=== PATIENT | female | born 2000 | race Caucasian/White ===

== ENCOUNTER 2018-04-22 11:30 | Emergency (ER) | payer SELFPAY ==
[~2018-04-22] VITALS: Wt 58.0 kg
[2018-04-22] MEDS ORDERED: ACETAMINOPHEN 325 MG TAB PO STA (12:25)
[2018-04-22] MEDS ORDERED: PREN-19 PO (14:20)
--- NOTE | 2018-04-22 14:25 | ERD ---
ER Documentation Chief Complaint Chief Complaint POSITIVE PREG TEST, HAS AP HPI 17-year-old female presents with suprapubic mild pain. She denies dysuria, fevers, vomiting. Denies vaginal bleeding or discharge. She thinks she might be . She has not checked a test at home. She has no history of ROS All systems reviewed and are negative except as per history of present illness. Medications Home Meds Active Scripts Vit #76/Iron,Carb/FA (Prenatabs Rx Tablet) 1 Each Tablet, 1 EACH PO Q DAY, #90 TAB Prov:SKY MARIA MD 04/22/18 PMhx/Soc Medical and Surgical Hx: pt denies Medical Hx, pt denies Surgical Hx History of Surgery: No Anesthesia Reaction: No Hx Neurological Disorder: No Hx Respiratory Disorders: No Hx Cardiac Disorders: No Hx Psychiatric Problems: No Hx Miscellaneous Medical Probl: No Hx Alcohol Use: No Hx Substance Use: No Hx Tobacco Use: No Smoking Status: Never smoker FmHx Family History: No diabetes, No coronary disease, No other Physical Exam Vitals Vital Signs Date Temp Pulse Resp B/P (MAP) Pulse Ox O2 O2 Flow FiO2 Time Delivery Rate 04/22/18 98.9 85 18 108/58 99 11:32 (75) Physical Exam Const: No acute distress Head: Atraumatic Eyes: Normal Conjunctiva ENT: Normal External Ears, Nose and Mouth. Neck: Full range of motion. No meningismus. Resp: Clear to auscultation bilaterally Cardio: Regular rate and rhythm, no murmurs Abd: Soft, non tender, non distended. Normal bowel sounds Skin: No petechiae or rashes Back: No midline or flank tenderness Ext: No cyanosis, or edema Neur: Awake and alert Psych: Normal Mood and Affect Result Diagram: 04/22/18 1244 Results 24 hrs Laboratory Tests Test 04/22/18 12:09 04/22/18 12:10 04/22/18 12:44 04/22/18 12:45 Bedside Urine pH 7.5 (LAB) Bedside Urine Negative Protein (LAB) Bedside Urine Negative Glucose (UA) Bedside Urine Negative Ketones (LAB) Bedside Urine 2+ Blood Bedside Urine Negative Nitrite (LAB) Bedside Urine Negative Leukocyte Esteras e (L POC Beta HCG, POSITIVE Qualitative White Blood Count 7.3 10^3/ul Red Blood Count 3.71 10^6/ul Hemoglobin 10.9 g/dl Hematocrit 32.3 % Mean Corpuscular 87.1 fl Volume Mean Corpuscular 29.4 pg Hemoglobin Mean Corpuscular 33.7 g/dl Hemoglobin Concen t Red Cell 12.0 % Distribution Width Platelet Count 278 10^3/UL Mean Platelet 9.8 fl Volume Immature 0.300 % Granulocytes % Neutrophils % 67.2 % Lymphocytes % 25.0 % Monocytes % 5.5 % Eosinophils % 1.6 % Basophils % 0.4 % Nucleated Red 0.0 /100WBC Blood Cells % Immature 0.020 10^3/ul Granulocytes # Neutrophils # 4.9 10^3/ul Lymphocytes # 1.8 10^3/ul Monocytes # 0.4 10^3/ul Eosinophils # 0.1 10^3/ul Basophils # 0.0 10^3/ul Nucleated Red 0.0 10^3/ul Blood Cells # Beta HCG, 2145.9 mIU/ml Quantitative Urine Color STRAW Urine Clarity CLEAR Urine pH 7.0 Urine Specific 1.017 [place] Urine Ketones NEGATIVE mg/dL Urine Nitrite NEGATIVE mg/dL Urine Bilirubin NEGATIVE mg/dL Urine NEGATIVE mg/dL Urobilinogen Urine Leukocyte NEGATIVE Anneliese/ul Esterase Urine Microscopic 2 /HPF RBC Urine Microscopic 1 /HPF WBC Urine Squamous FEW /HPF Epithelial Cells Urine Bacteria FEW /HPF Urine Hemoglobin 2+ mg/dL Urine Glucose NEGATIVE mg/dL Urine Total NEGATIVE mg/dl Protein Current Medications Medications Dose Sig/Ry Start Time Status Last (Trade) Ordered Route PRN Stop Time Admin Dose Reason Admin 650 mg ONCE STAT 04/22/18 DC 04/22/18 Acetaminophen PO 12:25 12:40 (Tylenol 04/22/18 12:28 Tab) Procedures/MDM HCG is positive. Urine shows no significant acute abnormal findings. Patient is Rh+. Quantitative hCG is 2145. Pelvic ultrasound shows a well implanted gestational sac approximately 5 weeks. No yolk sac or pole identified. There is a 2.4 cm right corpus luteum cyst. Left ovary normal. She presents with mild suprapubic pain and incidental early . Differential includes early normal , threatened , ectopic . She will discharged home with vitamins, recommendations for 2-day recheck of hCG. She will be referred to OB providers as well. She should return for bleeding, fevers, vomiting, worsening pain, new worsening symptoms. The patient was stable with no new complaints during the ER course. Clinically, there is no current evidence to suggest meningitis, sepsis, acute abdomen, pneumonia, stroke, acute coronary syndrome, pulmonary embolism, aortic dissection or any other emergent condition appearing to require further evaluation or hospitalization. Patient counseled regarding my diagnostic impression and care plan. Prior to discharge all questions answered. Pt agrees with treatment plan and understands strict return precautions. Pt is instructed to follow up with primary care provider within 24-48 hours. Precautionary instructions provided including instructions to return to the ER if not improving or for any worsening or changing symptoms or concerns. Departure Diagnosis: Primary Impression: Abdominal pain during in first trimester Condition: Stable Patient Instructions: Abdominal Pain, Early , , New Dx Referrals: APPLIED TECHNOLOGIST [place] [address] [facility] [address] [place] [address] OFFICE FAX [facility] [address] [place] [address] [facility] [address] [place] [address] [address] HERNANDES, [facility] [address] [facility], [address] [address] [address] [facility] [address] [place] [address] [facility] [address] [place] [address] [facility] [id number] - [place] [address]TE[address], [facility] [address] [address] HUFF, TRUMAN [address] [facility]. [address], [facility] [address] [address] [facility] [address] [place], [place] [id number] Additional Instructions: CHEQUE EN 2 ALMAZAN PARA CHEQUE HORMONES OTRO VEZ. POSIBLEMENTE N ORMAL, ECTOPICO , ABORTO. SKY MARIA MD Apr 22, 2018 14:25
== END 2018-04-22 14:09 | disposition home or self-care (01) ==
LOC: FTE 11:30
DX: O26.891 Other specified pregnancy related conditions, first trimester (principal); R10.9 Unspecified abdominal pain; Z3A.01 Less than 8 weeks gestation of pregnancy
CPT/HCPCS: 76801; 76817; 81001; 81003; 81025; 84702; 85025; 86900; 86901

== ENCOUNTER 2018-04-24 09:28 | Emergency (ER) | payer SELFPAY ==
[~2018-04-24] VITALS: Ht 167.6 cm; Wt 63.3 kg
[~2018-04-24 09:28] MED LIST: PREN-19 PO
[2018-04-24 09:32] VITALS: BP 117/56; PULSE 89; RESP 20; Ht 167.6 cm; Wt 63.3 kg
--- NOTE | 2018-04-24 13:05 | ERD ---
ER Documentation Chief Complaint Chief Complaint Patient here for recheck blood levels HPI 17-year-old female, patient with no significant past medical history presents to the ED for an encounter to repeat beta-hCG levels. Patient was here 2 days ago and was noted to have a beta hCG of 2145.9. Patient was told to return because her ultrasound showed a gestational sac but no yolk sac or pole. Patient currently states that she is not experiencing any vaginal bleeding, abdominal pain or vomiting. Denies any fever, chills, diarrhea, constipation, chest pain, shortness of breath. Reports that her last menstruation was on March 22, 2018. Denies any abdominal trauma. ROS All systems reviewed and are negative except as per history of present illness. Medications Home Meds Active Scripts Vit #76/Iron,Carb/FA (Prenatabs Rx Tablet) 1 Each Tablet, 1 EACH PO Q DAY, #90 TAB Prov:SKY TRAYLOR MD 04/22/18 Allergies Allergies: Coded Allergies: No Known Allergy (Unverified , 04/24/18) PMhx/Soc History of Surgery: No Anesthesia Reaction: No Hx Neurological Disorder: No Hx Respiratory Disorders: No Hx Cardiac Disorders: No Hx Psychiatric Problems: No Hx Miscellaneous Medical Probl: No Hx Alcohol Use: No Hx Substance Use: No Hx Tobacco Use: No Smoking Status: Never smoker FmHx Family History: No diabetes, No coronary disease Physical Exam Vitals Vital Signs Date Temp Pulse Resp B/P (MAP) Pulse Ox O2 O2 Flow FiO2 Time Delivery Rate 04/24/18 98.3 89 20 117/56 100 09:32 (76) Physical Exam Const: Src-ohr-hcgajdwkk, well-nourished. In no acute distress. Head: Atraumatic, normocephalic Eyes: Normal Conjunctiva without injection. No purulent discharge. ENT: Normal external ear, nose. Moist oropharynx without tonsillar exudates. Non-erythematous pharynx. Uvula midline. No drooling. No trismus. Neck: No cervical midline tenderness. Full range of motion. No meningismus. No cervical lymphadenopathy. No JVD. Resp: Clear to auscultation bilaterally. No wheezing, rhonchi, rales, or crackles. No accessory muscle use. No retractions. Cardio: Regular rate and rhythm. No murmurs, rubs or gallops. Abd: Soft, nontender, non distended. Normal bowel sounds. No palpable masses. No rebound tenderness. No guarding. Negative McBurney's point. Negative psoas sign. Negative obturator sign. Skin: No petechiae or rashes Back: No midline tenderness. No CVA tenderness. Ext: No cyanosis, or edema. Neur: Awake and alert. Normal gait. Normal coordination. Psych: Normal Mood and Affect Results 24 hrs Laboratory Tests Test 04/24/18 10:38 Beta HCG, Quantitative 4009.5 mIU/ml Procedures/MDM 17-year-old female patient with no significant past medical history is a presents to ED for a repeat beta hCG level recheck. Patient is afebrile and nontoxic-appearing. Patient's beta hCG was 2149.9 two days ago and now has up trended to 4009. This is likely consistent with a progression of her - differentials include early . Since patient does not have any abdominal pain, vaginal bleeding, at this time the ultrasound was not obtained. 2 days ago ultrasound recommended repeat ultrasound in 7-10 days. She was strictly instructed to follow-up with her ACTIVITY AIDE for further evaluation and treatment. Patient was instructed to return for any abdominal pain or vaginal bleeding since there is no pole or yolk sac with her gestational sac, the suspicion for ectopic is low at this time however still needs to be ruled out if patient experiences any more abdominal pain or vaginal bleeding. Discussed with my supervising physician, Dr. Traylor, who agreed with the management discharge plan. Low suspicion for symptomatic anemia, ectopic , sepsis, PID, appendicitis, ovarian torsion, tubo-ovarian abscess, surgical abdomen, or other emergent conditions. Patient was educated that there is a risk for threatened . Patient to follow up with ACTIVITY AIDE in 2 days for further evaluation and treatment. Patient is to return sooner to the ED for any worsening symptoms. Patient's questions were answered. Patient understood and agreed with discharge plan. Caries Disclaimer: Inadvertent spelling and grammatical errors are likely due to EHR/dictation software use and do not reflect on the overall quality of patient care. Also, please note that the electronic time recorded on this note does not necessarily reflect the actual time of the patient encounter. Departure Diagnosis: Primary Impression: Encounter for laboratory test Condition: Stable Patient Instructions: : Your First Trimester Changes, Adapting to : First Trimester Referrals: [facility] Usted se conrad hecho un examen mdico de control que le indica que no est en jacob condicin que requiera tratamiento urgente en el Departamento de Emergencia. Un estudio ms profundo y el tratamiento de moore condicin pueden esperar sin ningn riesgo hasta que usted sea atendida/o en el consultorio de moore mdico o jacob clnica. Es responsabilidad suya arreglar jacob antwon para el seguimiento del prasanna. MANEJO DE CONDICIONES NO URGENTES EN EL FUTURO 1) Si usted tiene un mdico de atencin primaria: Usted debera llamar a moore mdico de atencin primaria antes de venir al departamento de emergencia. Despus de las horas de consultorio, moore doctor o moore asociado/a est disponible por telfono. El mdico o enfermero de sal en el servicio telefnico puede asesorarle por farzad medio para atender el problema, o prasanna contrario se puede programar jacob antwon. 2) Si usted no tiene un mdico de atencin primaria: Llame al mdico o clnica de referencia que aparece abajo bello las horas de consultorio para hacer jacob antwon para que le vean. CLINICAS: [facility] [phone] [facility] [phone] [facility] [phone] [facility] [phone] [facility] [phone] [facility]. [phone] [address] . [facility] () Usted se conrad hecho un examen mdico de control que le indica que no est en jacob condicin que requiera tratamiento urgente en el Departamento de Emergencia. Un estudio ms profundo y el tratamiento de moore condicin pueden esperar sin ningn riesgo hasta que usted sea atendida/o en el consultorio de moore mdico o jacob clnica. Es responsabilidad suya arreglar jacob antwon para el seguimiento del prasanna. MANEJO DE CONDICIONES NO URGENTES EN EL FUTURO 1) Si usted tiene un mdico de atencin primaria: Usted debera llamar a moore mdico de atencin primaria antes de venir al departamento de emergencia. Despus de las horas de consultorio, moore doctor o moore asociado/a est disponible por telfono. El mdico o enfermero de sal en el servicio telefnico puede asesorarle por farzad medio para atender el problema, o prasanna contrario se puede programar jacob antwon. 2) Si usted no tiene un mdico de atencin primaria: Llame al mdico o condado institucions de referencia que aparece abajo bello las horas de consultorio para hacer jacob antwon para que le vean. SI USTED NO PUEDE PAGAR PARA PRIYA UN MEDICO puede ir a: [facility] [address] [place] [address] [facility] [address] [place] [address] [facility] [address] [place] [address] [facility] [address] [place] [address] ACTIVITY [place] [address] [facility] [address] [place] [address] OFFICE FAX SANDY [facility] [address] [place] [address] [address] MIGUEL, NICHOLAS [address] [address], [place] [address] DR HERNANDES, [facility] [address] [facility], [address], [place] [address] DR ROLLE-KIM, [facility] [address] [facility] [place] [address] [facility] [address] [place] [address] [facility], [facility] [address] - [address] GOFF, PER[place] [address] [place] [address] DR HUFF, TRUMAN [address] [facility]. [address], [place] [address] DR MUÑOZ, FARID [address] [place], [place] [id number] [facility] Hours: 8:00 am - 5:00 pm Additional Instructions: Llame al doctor MAANA y lily jacob ANTWON PARA DENTRO DE 2-3 ALMAZAN para jacob remisin a priya a un obstetra. Dgale a la secretaria que nosotros le instruimos hacer esta antwon.Avise o llame si moore condicin se empeora antes de la antwon. Regresa aqui si peor o no mejor - sangrado vaginal, dolor abdominal, vmitos, fialejandrore FANNY ARNOLD PA-C Apr 24, 2018 13:05
== END 2018-04-24 13:06 | disposition home or self-care (01) ==
LOC: FTE 09:28
DX: Z32.01 Encounter for pregnancy test, result positive (principal)
CPT/HCPCS: 36415; 84702; 99283

== ENCOUNTER 2018-10-17 14:59 | Outpatient (CLI) | payer MEDICAID ==
[~2018-10-17] VITALS: Ht 162.6 cm; Wt 70.4 kg
[~2018-10-17 14:59] MED LIST changes: +FER325 PO; +FLUT9.9S NASAL
[2018-10-17 15:14] VITALS: Ht 162.6 cm; Wt 70.4 kg
[2018-10-17 15:15] VITALS: BP 105/58; PULSE 88; RESP 18
--- NOTE | 2018-10-17 16:09 | TRIAGE ---
OB Triage Datetime Report Generated by CPN: 10/17/2018 16:09 Datetime: 10/17/2018 16:00 Stage of : OB Triage Maternal Assessment Level of Consciousness: Keenly Alert, Responsive Labor Evaluation Frequency: 1UC/HR Monitor Mode: External Duration (sec)2399: 70 Quality: Mild Resting Tone Mott: Relaxed Heart Rate FHR Baseline Rate: 135 Monitor Mode: External US Variability: Moderate 6-25 bpm Accelerations: 15X15 Decelerations: None Category: Category I Pain Assessment Pain Scale: 0 Pain Goal: 3 Vaginal Exam Membrane Status: Intact Vaginal Bleeding: None Datetime: 10/17/2018 15:12 Assessment Type: Triage Maternal Assessment Level of Consciousness: Keenly Alert, Responsive DTR's/Clonus: DTRs 2+; No Clonus Headache: Denies Blurred Vision: No Respiratory Effort: Unlabored; Regular Rhythm; Equal Expansion Breath Sounds, Left: Clear and Equal Breath Sounds, Right: Clear and Equal Nausea/Vomiting: Denies RUQ Epigastric Pain: Denies Lower Extremities Edema: None Degree: None Upper Extremities Edema: None Degree: None Facial Edema: None Fall Risk Assessment History of Falling: (0) No Secondary Diagnosis: (0) No Ambulatory Aid: (0) Bedrest/Nurse Assist IV Therapy: (0) No Gait: (0) Normal/Bedrest/Immobile Mental Status: (0) Oriented to Own Ability Fall Score: 0 Fall Risk Score Definition: No Risk: No action required Datetime: 10/17/2018 15:11 Monitor Mode: External Monitor Mode: External US Datetime: 10/17/2018 15:09 EGA: 30.3 Datetime: 10/17/2018 15:07 Time of Arrival: 10/17/2018 14:43 EGA: 30.3 Arrived By: Ambulatory Arrived From: Home Chief Complaint: PT. HERE C/O SOB Movement: Present Contractions: Denies/Absent Rupture of Membranes: Denies Vaginal Bleeding: None Vaginal Discharge: Denies Recent Sexual Intercouse: Denies Abdominal Trauma: Not Applicable Patient Complaints: Shortness of Breath Time Provider Notified: 10/17/2018 15:19 Provider Notified: MARIBELL Initial Plan: AGATA/KEDAR
--- NOTE | 2018-10-17 16:11 | PN ---
Triage Information Date/Time Reason for visit: Shortness of Breath Weeks of Gestation 30+ /Para n/a Diabetes: none Hypertention: none Objective Vital Signs Date Temp Pulse Resp B/P (MAP) Pulse Ox O2 O2 Flow FiO2 Time Delivery Rate 10/17/18 97.7 88 18 105/58 97 Room Air 15:15 (74) Heart Rate: 140's Contractions: None Disposition: Discharge Assessment/Plan BPP 01/04 Discharged to ER for evaluation as Per her provider's decision Precautions discussed Questions answered Follow up with provider LEATHA ARRIAGA M.D. Oct 17, 2018 16:11
== END 2018-10-17 16:14 | disposition home or self-care (01) ==
LOC: OBT 14:59 → L-D 15:01 → OBT 16:14
PROVIDERS: ATTEND Obstetrics & Gynecology
DX: O26.893 Other specified pregnancy related conditions, third trimester (principal); Z3A.30 30 weeks gestation of pregnancy; R06.02 Shortness of breath
CPT/HCPCS: 76818; Z7500; G0463